=== PATIENT | female | born 1980 | race Two or more races ===

== ENCOUNTER 2023-07-27 19:57 | Emergency (ER) | payer OTHER, SELFPAY ==
[2023-07-27 20:07] VITALS: BP 115/67; PULSE 81; RESP 16; TEMP 36.9; O2SAT 100
--- NOTE | 2023-07-27 20:12 | ED.GENADUL_ITS ---
Discharge Plan Disposition Patient Disposition: Home Discharge Details Clinical Impression: Kidney stone Primary Care Provider: Unknown,Unknown ED Provider: Alhaji Nieto Home Meds and New Rx's Prescriptions: New tamsulosin 0.4 mg capsule 0.4 mg PO DAILY 5 Days Qty: 5 0RF Discharge Instructions Instructions: Kidney Stones (ED) Additional Instructions: Please follow-up with Dr. Fields of urology. Please take medications as prescribed. Please return to the emergency department for any worsening symptoms Referrals: [facility] [Provider Group] - 1 week Medical Decision Making 43-year-old female presents with left-sided flank pain over the last day now experiencing difficulty urinating. Appears uncomfortable. History of kidney stones. History of prior stenting. Likely recurrent kidney stones. Must also consider UTI versus lower suspicion for pyelonephritis. Fluids antiemetics analgesia anti-inflammatory, Flomax, CT abdomen pelvis without contrast. Close reassessment of symptoms 00: 27 patient resting comfortably no acute distress. Evidence of left-sided kidney stone. No sign of UTI. Patient feeling much better. Will be given urology follow-up, prescription for Flomax Home care instructions and return precautions HPI General Date/Time Provider Initiated Documentation: 07/27/23 20:03 . HPI Narrative: 43-year-old female history of kidney stones presents with 1 day of left flank pain rating down into her lower abdomen now associated with difficulty urinating. Related Data Home Medications Medication Instructions Recorded Confirmed tamsulosin 0.4 mg capsule 0.4 mg PO DAILY 5 days #5 caps 07/28/23 Previous Rx's Medication Instructions Recorded tamsulosin 0.4 mg capsule 0.4 mg PO DAILY 5 days #5 caps 07/28/23 General Stated Complaint: FlankPain TRESSA: 3 Review of Systems Narrative: Review of Systems Constitutional: negative Eyes: negative ENT: negative Cardiovascular: negative Respiratory: negative Gastrointestinal: negative : Left flank pain Musculoskeletal: negative Skin: negative Neurologic: negative Psych: negative PFSH All Active Problems (Updated 07/28/23 @ 00:29 by Alhaji Nieto MD) Kidney stone (Chronic) Social History Smoking/Tobacco Use Status: Never Smoking risk assessment performed?: Yes Alcohol Intake: never Substance use type: does not use Exam Narrative Exam Narrative: Physical Examination General: alert, awake, cooperative, appears uncomfortable HEENT: normocephalic, atraumatic; PERRL, EOM intact, conjunctiva normal; no nasal discharge; moist mucous membranes, oral and pharyngeal mucosa normal, tolerating secretions Neck: supple, trachea midline; full ROM Chest: normal to inspection Respiratory: normal respiratory effort, speaking in full sentences, clear to auscultation, no wheezing, rales or rhonchi Cardiac: regular rate, regular rhythm, S1S2 intact, no murmurs rubs or gallops GI: abdomen soft, non-tender, non-distended; no palpable mass or hepatosplenomegaly Skin: no lesions, rashes or trauma appreciated Neuro: AAOx3, normal speech, moving all extremities Psych: Appropriate mood and affect Course Vital Signs Vital signs: Vital Signs Pulse 81 07/27/23 20:07 Respiratory Rate 16 07/27/23 20:07 Blood Pressure 115/67 07/27/23 20:07 Pulse Oximetry 100 07/27/23 20:07 Pulse 81 07/27/23 20:07 Respiratory Rate 16 07/27/23 20:07 Respiratory Effort Normal 07/27/23 20:07 Blood Pressure 115/67 07/27/23 20:07 Pulse Oximetry 100 07/27/23 20:07 Oxygen Delivery Method Room Air 07/27/23 20:07 Oxygen Flow Rate 0 07/27/23 20:07 Pain Level 10 07/27/23 20:07 Lab/Test Results Lab/Test Results: POC- Test(urine) Negative
[2023-07-27 20:13] LABS: Bilirubin Small (Negative); Blood Large (Negative); Clarity Cloudy (Clear); Glucose 100 mg/dL (Negative); Ketones Negative (Negative); Leukocyte Esterase Negative (Negative); Nitrite Negative (Negative); Specific Gravity >= 1.030 (1.005-1.025); Urobilinogen 0.2 mg/dL (Up to 0.2); pH 5.5 (5-8)
[2023-07-27 20:22] LABS: Bacteria Few HPF (Negative); C & S Indicated? No; Casts Negative LPF (Negative); Crystals Few Calcium Oxalate HPF (Negative); Epithelial Cells Few HPF (Negative); Mucus Negative (Negative); RBC >50 HPF (0-2); WBC 0-2 HPF (0-5)
[2023-07-27 20:26] LABS: Abs Immature Grans 0.05 10^3/uL (0.0-0.06); Absolute Basophil Count 0.16 10^3/uL (0.0-0.2); Absolute Eosinophil Count 0.29 10^3/uL (0.0-0.7); Absolute Lymphocyte Count 3.22 10^3/uL (1.2-3.4); Absolute Monocyte Count 0.73 10^3/uL (0.1-0.8); Absolute Neutrophil Count 8.53 10^3/uL (1.2-6.7); Basophils % 1.2; Eosinophils % 2.2; HCT 39.5 % (36.0-46.0); HGB 12.9 g/dL (11.2-15.7); Immature Grans % 0.4; Lymphocytes % 24.8; MCH 27.4 pg (27.0-33.0); MCHC 32.7 % (32.0-36.0); MCV 84 fL (80-95); MPV 9.9 fL (8.0-11.0); Monocytes % 5.6; Neutrophils % 65.8; Platelet Count 297 10^3/uL (130-400); RBC 4.71 10^6/uL (3.93-5.22); RDW 12.5 % (11.7-14.6); RDW-SD 37.9 fL; WBC 12.97 10^3/uL (4.4-10.8)
[2023-07-27] MEDS: Ketorolac 15 MG/ML VIAL IVP (20:30)
[2023-07-27] MEDS: Ondansetron 4 MG/2 ML VIAL IVP (20:30)
[2023-07-27] MEDS: Normal Saline 1,000 ML 1000 ML IV ×2 (20:31→22:32)
[2023-07-27] MEDS: Tamsulosin 0.4 MG CAPCR PO (20:31)
[2023-07-27 20:42] LABS: ALT 18 U/L (14-59); AST 16 U/L (15-37); Albumin 4.3 g/dL (3.4-5.0); Alkaline Phosphatase 67 U/L (46-116); Anion Gap 7.7 mmol/L (3-11); BUN 21 mg/dL (7-18); Bilirubin, Total 0.9 mg/dL (0.2-1.0); CO2 28.3 mmol/L (21.0-32.0); CREATININE 0.9 mg/dL (0.55-1.02); Calcium 9.2 mg/dL (8.5-10.1); Chloride 100 mmol/L (98-107); Estimated GFR 81.86 (mL/min/1.73m2); Glucose 79 mg/dL (74-106); Potassium 3.9 mmol/L (3.5-5.1); Sodium 136 mmol/L (136-145)
--- NOTE | 2023-07-27 23:41 | DI.CT_ITS ---
Exam(s) CT ABDOMEN PELVIS WO EXAM: CT ABDOMEN PELVIS WO CLINICAL HISTORY: left flank pain hx kidney stones. TECHNIQUE: Imaging Protocol: Axial computed tomography images with coronal and sagittal reformatted images were created and reviewed. COMPARISON: No exams were available for comparison FINDINGS: ABDOMEN: Lung Bases: Normal where visualized. Liver: Normal density. No measurable mass. Gallbladder and biliary tract: No radiodense calculus or biliary ductal dilation. Pancreas: Normal density, no abnormal calcifications or inflammatory process. Spleen: Normal. Kidneys: Normal size, contour and axis.There is bilateral nephrolithiasis. There is a 7 mm stone at the left UPJ causing moderate hydronephrosis. No masses seen. Adrenal glands: No mass is seen. Lymph nodes: Within normal limits. Abdominal Aorta: Abdominal portion non-dilated. Atherosclerosis. PELVIS: Bladder:Symmetric distention, no gross wall thickening. Bowel: No obstruction or bowel wall thickening. No evidence of appendicitis. Peritoneal cavity: Trace amount of free fluid in the pelvis. This may be physiologic. No free air. Reproductive organs: Unremarkable as visualized. Bones: Within normal limits. Soft Tissues: Within normal limits. IMPRESSION: 1. 7 mm left UPJ calculus causing moderate left hydronephrosis. 2. Bilateral nephrolithiasis. RADIATION DOSE DELIVERED: 839.06mGy.cm Total DLP DATA REPOSITORY: All CT scans at this facility are submitted to the National Radiology Data Registry (NRDR) Dose Index Registry (DIR) with the [employer] ([employer]). RADIATION OPTIMIZATION: All CT scans at this facility use at least one of these dose optimization te chniques: automated exposure control; mA and/or kV adjustment per patient size (includes targeted exa ms where dose is matched to clinical indication); or iterative reconstruction.
--- NOTE | 2023-07-28 00:13 | DI.VRAD_ITS ---
PROCEDURE INFORMATION: Exam: CT Abdomen And Pelvis Without Contrast Exam date and time: 07/27/2023 11:28 PM Age: 43 years old Clinical indication: Pain; Other: Left flank; Patient HX: HX kidney stones TECHNIQUE: Imaging protocol: Computed tomography of the abdomen and pelvis without contrast. Radiation optimization: All CT scans at this facility use at least one of these dose optimization techniques: automated exposure control; mA and/or kV adjustment per patient size (includes targeted exams where dose is matched to clinical indication); or iterative reconstruction. COMPARISON: No relevant prior studies available. FINDINGS: Liver: Normal. No mass. Gallbladder and bile ducts: Normal. No calcified stones. No ductal dilation. Pancreas: Normal. No ductal dilation. Spleen: Normal. No splenomegaly. Adrenal glands: Normal. No mass. Kidneys and ureters: Nonobstructing renal calculi. 7 mm calculus left ureteropelvic junction with mild left hydronephrosis. Stomach and bowel: Unremarkable. No obstruction. No mucosal thickening. Appendix: No evidence of appendicitis. Intraperitoneal space: Unremarkable. No free air. No significant fluid collection. Vasculature: Unremarkable. No abdominal aortic aneurysm. Lymph nodes: Unremarkable. No enlarged lymph nodes. Urinary bladder: Unremarkable as visualized. Reproductive: Unremarkable as visualized. Bones/joints: Unremarkable. No acute fracture. Soft tissues: Unremarkable. IMPRESSION: 7 mm calculus left ureteropelvic junction with mild left hydronephrosis. Dictated and Authenticated by: Bahman Whalen MD. Ordering:ELIESER Mane MD
[2023-07-28 00:30] VITALS: BP 122/62; PULSE 72; RESP 16; O2SAT 100
--- NOTE | 2023-07-28 00:33 | NUR.NOTE ---
Referral faxed to [facility] to f/u next week for kidney stone.Nursing Note:
== END 2023-07-28 00:33 | disposition home or self-care (01) ==
PROVIDERS: Emergency Provider Emergency Medicine
DX: R10.9 Unspecified abdominal pain (principal); N13.2 Hydronephrosis with renal and ureteral calculous obstruction; Z87.442 Personal history of urinary calculi
CPT/HCPCS: 80053; 81025; 96361; 96374; 96375; 99285; 74176; 81003; 81015; 85025; 99284; J1885; J2405